=== PATIENT | female | born 1960 | race African-American/Black ===

== ENCOUNTER 2017-07-31 05:35 | Emergency (ER) | payer OTHER ==
[~2017-07-31] VITALS: Ht 167.6 cm; Wt 54.5 kg
[~2017-07-31 05:35] MED LIST: ASPI81 PO; CLON-570 PO; OXYC10 PO; OXYM40TA13 PO
[2017-07-31] MEDS ORDERED: AMPICILLIN SODIUM/SULBACTAM NA 1.5 GM in SODIUM CHLORIDE 0.9% 50 ML IV ONE (06:30)
[2017-07-31 07:00] VITALS: BP 170/99
== END 2017-07-31 07:22 | disposition home or self-care (01) ==
LOC: EMS 05:36
DX: K04.7 Periapical abscess without sinus (principal); I10 Essential (primary) hypertension; G43.909 Migraine, unspecified, not intractable, without status migrainosus; F12.90 Cannabis use, unspecified, uncomplicated; F17.210 Nicotine dependence, cigarettes, uncomplicated; Z79.82 Long term (current) use of aspirin
CPT/HCPCS: 96374; 99284; 99406; J0295; J7050